=== PATIENT | female | born 1935 | race Caucasian/White ===

== ENCOUNTER 2020-06-19 09:49 | Emergency (ER) | payer MEDICARE, SELFPAY ==
[2020-06-19 10:04] VITALS: BP 143/75; PULSE 92; RESP 18; TEMP 35.8; O2SAT 98
--- NOTE | 2020-06-19 10:10 | ED.GENADULT ---
HPI - General Adult General Chief complaint: Urogenital-Female Stated complaint: disoriented/dizziness/burning w urination Time Seen by Provider: 06/19/20 10:10 Source: family (daughter) and RN notes reviewed Mode of arrival: ambulatory Limitations: other (Alzheimer's) History of Present Illness HPI narrative: 84-year-old female presents with daughter who complains of urinary complaints for the past 2 days. Dysuria consist of increased confusion, burning, and frequency. Daughter says mother wears depend for incontinent episodes and is at baseline at this time. No treatment.? History of UTIs and Alzheimer's disease. Denies fever. No significant pelvic pain. No vaginal discharge.? No concerns for STDs. Exacerbating factors urinating.? Denies hematuria or vaginal bleeding. LMP hysterectomy.? No flank pain. Denies nausea, vomiting, and abdominal pain. Tolerating liquids well.? Remains active. The patient's daughter reports they have not been diagnosed with COVID-19. The patient's daughter reports they are not waiting for the results of a COVID-19 lab test. The patient's daughter reports they do not have chills, weakness, or fatigue. The patient's daughter reports they do not have a new or worsening cough or shortness of breath. Denies chest pain. The patient's daughter reports they do not have any rhinorrhea, congestion, loss of taste, sore throat, and diarrhea. Denies recent traveling. Denies concerns for COVID-19 or exposures been home with limited outdoor exposure except for essential household needs and return home. At this time, patient is not suspected of having COVID-19. Some parts of this dictation were generated by voice recognition software and may contain typographical and/or grammatical inaccuracies. Related Data Home Medications Medication Instructions Recorded Confirmed Namenda 10 mg PO BID 06/19/20 06/19/20 alendronate 70 mg PO WEEKLY 06/19/20 06/19/20 donepezil 10 mg PO HS 06/19/20 06/19/20 levothyroxine 25 mcg PO DAILY 06/19/20 06/19/20 simvastatin 10 mg PO .EVENING 06/19/20 06/19/20 Allergies Allergy/AdvReac Type Severity Reaction Status Date / Time No Known Allergies Allergy Verified 06/19/20 10:34 Review of Systems Review of Systems: Narrative: CONSTITUTIONAL: Denies fever, chills, sweats. EYES: Denies visual changes, redness, discharge. ENT: Denies rhinorrhea, congestion, sore throat, otalgia. CARDIOVASCULAR: Denies chest pain, palpitations, edema. RESPIRATORY: Denies dyspnea, wheezing, cough. GASTROINTESTINAL: Denies abdominal pain, nausea, vomiting, diarrhea. GENITOURINARY: Complains of dysuria (confusion, burning, and frequency). Denies hematuria, abnormal discharge. SKIN: Denies rash or itching. MUSCULOSKELETAL: Denies acute back pain, joint pain, or myalgia. NEUROLOGIC: Denies numbness or focal weakness. PSYCHIATRIC: Denies anxiety or depression. All systems reviewed & are unremarkable except as noted in HPI and below. [facility] Past Medical History Medical History (Updated 06/19/20 @ 17:43 by WINSTON Car) Alzheimers disease Hypertension Hypothyroidism Mild hypercholesterolemia Osteoporosis Urinary tract infection in female Surgical History Surgical History (Updated 06/19/20 @ 17:42 by WINSTON Car) History of hysterectomy Family History Family History (Updated 06/19/20 @ 10:24 by WINSTON Car) Father Unknown family medical history Mother No significant past medical history Social History Social History (Updated 06/19/20 @ 10:26 by WINSTON Car) Smoking status: Former smoker Second hand tobacco smoke exposure: No (former) Alcohol intake: never Substance use: never Living arrangements: with family Additional living arrangements comments: Sharona lives with her spouse and daughter assist when needed, daughter says father is A&OX3 and healthy Occupation/Education: retired Gender identity
--- NOTE | 2020-06-19 11:16 | PC.NURSE ---
1025-Pt unable to void. Provider notified. Provider wants a straight cath done to collect specimen. Provider explained need for straight cath to family.
== END 2020-06-19 10:58 | disposition home or self-care (01) ==
PROVIDERS: Emergency Provider Nurse Practitioner Family; PCP Internal Medicine
DX: R30.0 Dysuria (principal); R31.9 Hematuria, unspecified; Z87.891 Personal history of nicotine dependence; G30.9 Alzheimer's disease, unspecified; F02.80 Dementia in other diseases classified elsewhere, unspecified severity, without behavioral disturbance, psychotic disturbance, mood disturbance, and anxiety; I10 Essential (primary) hypertension; E03.9 Hypothyroidism, unspecified; E78.00 Pure hypercholesterolemia, unspecified; M81.0 Age-related osteoporosis without current pathological fracture
CPT/HCPCS: 81003; 99213; G0463

== ENCOUNTER 2020-12-30 13:07 | Emergency (ER) | payer MEDICARE, SELFPAY ==
[2020-12-30] VITALS (26 sets, daily range): BP systolic 75–166; BP diastolic 38–78; PULSE 58–112; RESP 14–27; TEMP 36.7; O2SAT 92–100
--- NOTE | ~2020-12-30 | XR_ITS ---
EXAMINATION: XR wrist RT min 3V DATE: 12/30/2020 15:19 INDICATION: Right wrist swelling and ecchymoses post fall TECHNIQUE: Posteroanterior, ulnar deviation, oblique, and lateral views of the right wrist were obtai jonnie. COMPARISON: none FINDINGS: Diffuse osteopenia. Bone alignment is normal. No fracture. Mild osteoarthritis at the carpal metacarp al joints. Soft tissues are unremarkable. IMPRESSION: 1. No acute osseous abnormality. Reviewed, dictated and finalized at location A.
--- NOTE | ~2020-12-30 | CT_ITS ---
EXAMINATION: CT brain wo con DATE: 12/30/2020 15:09 INDICATION: Syncope. Head injury. TECHNIQUE: Computed tomography (CT) of the head was performed without intravenous contrast. The mA wa s adjusted according to patient size. Iterative reconstruction technique was employed. The dose-lengt h product was 605.33 mGy-cm. COMPARISON: None FINDINGS: There is diffuse brain volume loss. There are scattered areas of low attenuation in the cer ebral white matter. There is no intracranial hemorrhage, acute infarction, or abnormal intracranial m ass lesion. The ventricles are normal in size. The paranasal sinuses are clear. The mastoid air cells are normal. The orbits are normal. IMPRESSION: 1. Mild nonspecific cerebral white matter disease, which likely represents chronic small vessel ische ellyn disease. Reviewed, dictated and finalized at location B. IMPRESSION: 1. Mild nonspecific cerebral white matter disease, which likely represents extrusion die repair manager maria a small vessel ischemic disease.
--- NOTE | ~2020-12-30 | XR_ITS ---
XR chest 2V 12/30/2020 15:19 Indication: Syncope. Hypertension. Procedure: AP and lateral views of the chest Comparison: No prior studies for comparison. Findings: There is a 1.3 cm nodule lateral to the right hilum. There is calcified granuloma left midl chandra zone. No acute focal pneumonia, pleural effusion or pneumothorax. No acute osseous abnormality. Impression: 1: Right perihilar nodule measuring 1.3 cm, suspicious for malignancy. Recommend follow-up correlatio n with CT chest. Reviewed, dictated and finalized at location A. Impression: 1: Right perihilar nodule measuring 1.3 cm, suspicious for malignancy. Recommen d follow-up correlation with CT chest.
--- NOTE | ~2020-12-30 | CT_ITS ---
EXAMINATION: CT cervical spine wo con DATE: 12/30/2020 15:09 INDICATION: Syncope. Neck pain. TECHNIQUE: Computed tomography (CT) of the cervical spine was performed without intravenous contrast. The dose-length product was 151 mGy-cm. Automated exposure control and iterative reconstruction tech nique were employed. COMPARISON: None FINDINGS: Straightening of cervical lordosis. There is degenerative retrolisthesis at C5-6. There is disc narrowing and endplate sclerosis at C5-6 and C6-7. There is an old spinous process fracture at C 6. No evidence for perched facet. Odontoid process within normal limits. There is multilevel uncinate and facet hypertrophy. Mild levocurvature of the cervical spine. There is an irregular shaped mass o f the right apex, partially visualized, suspicious for bronchogenic carcinoma. No lytic or blastic le sions are identified. No acute fracture or traumatic malalignment. There is carotid atherosclerosis. IMPRESSION: 1. No acute fracture. 2: Partially visualized irregular shaped right apical mass, suspicious for bronchogenic carcinoma. 3: Moderate cervical spondylosis. Reviewed, dictated and finalized at location A. IMPRESSION: 1. No acute fracture. 2: Partially visualized irregular shaped right apical mass, suspicious for bro nchogenic carcinoma. 3: Moderate cervical spondylosis.
--- NOTE | 2020-12-30 13:17 | ECG_ITS ---
Measurements Intervals [place] Rate: 63 P: -15 NM: 199 QRS: -29 QRSD: 145 T: 3 QT: 446 QTc: 458 Interpretive Statements SINUS RHYTHM WITH SINUS ARRHYTHMIA RIGHT BUNDLE BRANCH BLOCK ABNORMAL ECG Electronically Signed On 12-30-2020 13:39:18 CDT by Benoit Keene D.O.
[2020-12-30 14:11] LABS: Basophils Absolute Auto 0.1 K/mm3 (0.0-0.1); Basophils Percent Auto 0.7 % (0.2-1.2); Eosinophils Percent Auto 0.6 % (0-4.4); Hematocrit 40.1 % (37.0-47.0); Hemoglobin 12.7 g/dL (12.0-15.0); Immature Granulocyte Absolute 0.04 K/mm3 (0.00-0.031); Immature Granulocyte Percent A 0.6 % (0-0.5); Lymphocytes Absolute Auto 0.91 K/mm3 (0.9-3.2); Mean Corpuscular HGB Conc 31.7 g/dl (32-36); Mean Corpuscular Volume 94.8 fl (80-100); Mean Platelet Volume 11.5 fl (7.4-10.4); Monocytes Absolute Auto 0.4 K/mm3 (0.1-0.6); Monocytes Percent Auto 6.1 % (2.6-8.5); Neutrophils Absolute Auto 5.5 K/mm3 (1.3-6.7); Platelet Count Result 157 k/mm3 (150-375); Red Blood Count 4.23 M/mm3 (4.2-5.4); Red Cell Distribution Width 14.4 % (11.5-14.5)
[2020-12-30 14:21] LABS: Anion Gap 6 mmol/L (8-16); Blood Urea Nitrogen 25 mg/dL (7-17); Calcium 9.4 mg/dL (8.4-10.2); Carbon Dioxide 29 mmol/L (22-30); Chloride 107 mmol/L (98-107); Estimated CRCL calculation 36 ml/min; Estimated Glomerular Filt Rate 60; Glucose 94 mg/dL (65-105); Potassium 4.3 mmol/L (3.4-5.0); Sodium 142 mmol/L (137-145)
[2020-12-30 14:33] LABS: Add Urine Microscopic? YES; Appearance Urine Cloudy (Clear); Bacteria Urine Trace /hpf; Bilirubin Urine Negative (Negative); Blood Urine Negative (Negative); Color Urine Amber (Yellow); Glucose Urine UA Negative (Negative); Hyaline Casts Urine 15-19 /lpf; Ketones Urine 1+ mg/dL (Negative); Leukocyte Esterase Ur Negative LEU/UL (Negative); Mucus Urine Few /lpf; Nitrate Urine Negative (Negative); Protein Urine 1+ mg/dL (Negative); Specific Grav Ur 1.018 (1.001-1.035); Squamous Epithelial Cell Urine Rare /hpf (Few)
--- NOTE | 2020-12-30 14:38 | PC.NURSE ---
called labSal, added on PT INR, PTT, and a Trop I Baseline [id number]
--- NOTE | 2020-12-30 15:02 | ED.SYNCOPE ---
HPI - Syncope General Chief Complaint: Syncope Stated Complaint: SYNCOPAL EPISODE Time Seen by Provider: 12/30/20 14:32 Source: patient and family Mode of arrival: EMS Limitations: dementia History of Present Illness HPI narrative: This is an 85-year-old female that presents to the emergency department from [facility] [place] and rehab for a syncopal episode today. Daughter is with patient who gives history. Reports she had just finished therapy and was seated in her wheelchair. Reports she was not complaining of any symptoms. Had syncopal event. Fell forward out of the wheelchair. Did hit her head. Reports she came back to her normal level of consciousness very quickly. Patient currently denies any complaints. Per daughter patient has had several episodes of syncope over the last couple years. Does know that the patient wore phys asst in the past. Also reports she was admitted to the hospital area earlier this year for syncopal events with further work-up with no etiology found. Patient denies fever, chest pain, shortness of breath, vomiting, numbness, or weakness. Related Data Home Medications Medication Instructions Recorded Confirmed Namenda 10 mg PO BID 06/19/20 06/19/20 alendronate 70 mg PO WEEKLY 06/19/20 06/19/20 donepezil 10 mg PO HS 06/19/20 06/19/20 levothyroxine 25 mcg PO DAILY 06/19/20 06/19/20 simvastatin 10 mg PO .EVENING 06/19/20 06/19/20 Allergies Allergy/AdvReac Type Severity Reaction Status Date / Time No Known Allergies Allergy Verified 12/30/20 14:00 Review of Systems Review of Systems: Narrative: CONSTITUTIONAL: Denies fever EYES: Denies visual changes CARDIOVASCULAR: Denies chest pain RESPIRATORY: Denies dyspnea. GASTROINTESTINAL: Denies vomiting GENITOURINARY: Denies dysuria MUSCULOSKELETAL: Denies back pain, joint pain, or myalgia. NEUROLOGIC: Denies headache, numbness, or weakness. All systems reviewed & are unremarkable except as noted in HPI and below PMFSH Past Medical History Medical History (Updated 12/30/20 @ 17:51 by Remedios Shaffer PA-C) Alzheimers disease Hypertension Hypothyroidism Mild hypercholesterolemia Osteoporosis Urinary tract infection in female Surgical History Surgical History (Updated 06/19/20 @ 17:42 by WINSTON Car) History of hysterectomy Family History Family History (Updated 06/19/20 @ 10:24 by WINSTON Car) Father Unknown family medical history Mother No significant past medical history Social History Social History (Updated 06/19/20 @ 10:26 by WINSTON Car) Smoking status: Former smoker Second hand tobacco smoke exposure: No (former) Alcohol intake: never Substance use: never Additional living arrangements comments: Sharona lives with her spouse and daughter assist when needed, daughter says father is A&OX3 and healthy Gender identity (if verbalized by the patient): Female Exam Narrative: Exam Narrative: GENERAL: Elderly, well-nourished, and in no acute distress. HEAD: Normocephalic, atraumatic. EYES: PERRLA and EOMI. ENT: Nares clear, no rhinorrhea or epistaxis. Mucous membranes moist. Oropharynx without tonsillar hypertrophy exudate or other lesions. Bilateral TMs pearly ryder non-bulging NECK: Supple. No adenopathy or masses. Tender to palpation of midline cervical spine CHEST: Clear to auscultation. No respiratory distress. No wheezes rales or rhonchi HEART: Regular rate and rhythm. No murmur heard. Normal peripheral pulses. ABDOMEN: Soft, nontender, nondistended, normal active bowel sounds. BACK: No midline thoracic or lumbar spine tenderness EXTREMITIES: Normal range of motion. No edema or obvious deformity. SKIN: Warm, dry, no rash. NEURO: No focal deficits. Alert and oriented x1, which is patient's normal mentation. PSYCH: Normal mood and affect Course Vital Signs Vital signs: Vital Signs Temperature 98.0 F 12/30/20 13:11 Pulse Rate 67
[2020-12-30 15:06] LABS: Troponin I < 0.012 ng/mL (0.000-0.034)
[2020-12-30 15:14] LABS: INR 0.9; Prothrombin Time 12.9 Seconds (11.1-14.7)
[2020-12-30 15:15] LABS: Partial Thromboplastin Time 26.3 SECONDS (22.3-36.8)
== END 2020-12-30 18:13 ==
PROVIDERS: Emergency Medicine; Physician Assistant; Emergency Provider Emergency Medicine; PCP Nurse Practitioner Family
DX: R55 Syncope and collapse (principal); G30.9 Alzheimer's disease, unspecified; F02.80 Dementia in other diseases classified elsewhere, unspecified severity, without behavioral disturbance, psychotic disturbance, mood disturbance, and anxiety; I10 Essential (primary) hypertension; E03.9 Hypothyroidism, unspecified; E78.00 Pure hypercholesterolemia, unspecified; M81.0 Age-related osteoporosis without current pathological fracture; Z87.440 Personal history of urinary (tract) infections; M47.812 Spondylosis without myelopathy or radiculopathy, cervical region; R90.82 White matter disease, unspecified; R91.1 Solitary pulmonary nodule; I45.10 Unspecified right bundle-branch block
CPT/HCPCS: 36415; 51701; 70450; 71046; 72125; 73110; 80048; 81001; 84484; 85025; 85610; 85730; 93005; 99284

== ENCOUNTER 2021-09-03 09:15 | Emergency (ER) | payer MEDICARE, SELFPAY ==
--- NOTE | ~2021-09-03 | CT_ITS ---
EXAMINATION: CT brain wo con DATE: 09/03/2021 10:04 INDICATION: Head injury. TECHNIQUE: Computed tomography (CT) of the head was performed without intravenous contrast. The mA wa s adjusted according to patient size. Iterative reconstruction technique was employed. The dose-lengt h product was 605.33 mGy-cm. COMPARISON: Head CT 12/30/2020 FINDINGS: There is diffuse brain volume loss. There are scattered areas of low attenuation in the cer ebral white matter. There is no intracranial hemorrhage, acute infarction, or abnormal intracranial m ass lesion. The ventricles are normal in size. There is mild mucosal thickening in the paranasal sinu ses. The mastoid air cells are normal. There are likely changes of ocular lens replacement surgeries. There is right posterior superior scalp soft tissue swelling. IMPRESSION: 1. Stable moderate nonspecific cerebral white matter disease, which likely represents chronic small v essel ischemic disease. Reviewed, dictated and finalized at location A. TLING COACH IMPRESSION: 1. Stable moderate nonspecific cerebral white matter disease, which likely repr esents chronic small vessel ischemic disease.
--- NOTE | ~2021-09-03 | XR_ITS ---
EXAMINATION: XR chest 1V portable DATE: 09/03/2021 10:17 INDICATION: Rib pain. Fall. TECHNIQUE: A single frontal view of the chest was obtained. COMPARISON: Chest 2 views 12/30/2020 FINDINGS: Calcified left lung nodules and calcified left hilar lymph nodes are consistent with old gr anulomatous disease. There is a 1.5 cm nodule in right midlung zone. There is mild scarring at the victoria ng apices. No pleural effusion or pneumothorax. The heart size is normal. IMPRESSION: 1. 1.5 cm nodule in right midlung zone similar in size to the prior exam, suspicious for primary bron chogenic carcinoma. Noncontrast chest CT is recommended. Reviewed, dictated and finalized at location A. BOX OPERATOR IMPRESSION: 1. 1.5 cm nodule in right midlung zone similar in size to the prior exam, suspi cious for primary bronchogenic carcinoma. Noncontrast chest CT is recommended.
--- NOTE | ~2021-09-03 | XR_ITS ---
EXAMINATION: XR hip BI 2V w AP pelvis DATE: 09/03/2021 10:17 INDICATION: Hip pain. TECHNIQUE: An anteroposterior view pelvis and 2 views of each hip were obtained. COMPARISON: None. FINDINGS: There is lumbar levocurvature and mild spondylosis. No fracture. There is mild osteoarthrit is of the hips. IMPRESSION: 1. Mild osteoarthritis of the hips. Reviewed, dictated and finalized at location A. [employer]ISOR BE[employer] DEPARTMENT
--- NOTE | ~2021-09-03 | CT_ITS ---
EXAMINATION: CT cervical spine wo con DATE: 09/03/2021 10:04 INDICATION: Head injury. TECHNIQUE: Computed tomography (CT) of the cervical spine was performed without intravenous contrast. Automated exposure control and iterative reconstruction technique were employed. The dose-length pro duct was 148.76 mGy-cm. COMPARISON: CT cervical spine 12/30/2020 FINDINGS: There are chronic airspace opacities in right lung upper lobe, likely scarring. There is 4 degrees dextrocurvature of cervicothoracic spine. There is 2 mm retrolisthesis of C4 on C5 and C5 on C6. Vertebral body heights are normal. There is mildly decreased disc height at C4-C5 and severely de creased disc height at C5-C6 and C6-C7. The following disc levels are specifically discussed: C2-C3: There is mild right uncovertebral joint osteoarthritis. There is mild bilateral facet joint os teoarthritis. There is no neural foraminal stenosis. There is no central canal stenosis. C3-C4: There is mild left uncovertebral joint osteoarthritis. There is mild right and moderate left f acet joint osteoarthritis. There is no neural foraminal stenosis. There is no central canal stenosis. C4-C5: There is mild bilateral uncovertebral joint osteoarthritis. There is moderate bilateral facet joint osteoarthritis. There is no neural foraminal stenosis. There is mild central canal stenosis. C5-C6: There is severe bilateral uncovertebral joint osteoarthritis. There is mild bilateral facet radha int osteoarthritis. There is mild bilateral neural foraminal stenosis. There is mild central canal st enosis. C6-C7: There is severe bilateral uncovertebral joint osteoarthritis. There is mild right and moderate left facet joint osteoarthritis. There is mild bilateral neural foraminal stenosis. There is mild ce ntral canal stenosis. C7-T1: There is no uncovertebral joint osteoarthritis. There is mild right and moderate left facet radha int osteoarthritis. There is no neural foraminal stenosis. There is no central canal stenosis. IMPRESSION: 1. No fracture. 2. Severe cervical spondylosis. Reviewed, dictated and finalized at location A. ALTY UNDERWRITER
--- NOTE | ~2021-09-03 | CT_ITS ---
EXAMINATION: CT lumbar spine wo con DATE: 09/03/2021 12:37 INDICATION: Back pain. Fall. TECHNIQUE: Computed tomography (CT) of the lumbar spine was performed without intravenous contrast. A utomated exposure control and iterative reconstruction technique were employed. The dose-length produ ct was 637.28 mGy-cm. COMPARISON: None FINDINGS: There are masses in the adrenal glands bilaterally measuring up to 18 mm in the left measur ing low-attenuation, consistent with adenomas. There is 3 mm anterolisthesis of L2 on L3 and L3 on L4 . There is 5 degrees levocurvature of lumbar spine. There is mildly decreased disc height at L1-L2 an d L4-L5. The following disc levels are specifically discussed: L1-L2: The disc is bulging. There is severe right and moderate left facet joint osteoarthritis. There is mild bilateral neural foraminal stenosis. There is mild central canal stenosis. L2-L3: The disc is bulging. There is severe bilateral facet joint osteoarthritis. There is mild right and moderate left neural foraminal stenosis. There is mild central canal stenosis. L3-L4: The disc is bulging. There is severe bilateral facet joint osteoarthritis. There is mild bilat eral neural foraminal stenosis. There is mild central canal stenosis. L4-L5: The disc is bulging. There is severe right and moderate left facet joint osteoarthritis. There is moderate right and mild left neural foraminal stenosis. There is mild central canal stenosis. L5-S1: The disc is bulging. There is severe bilateral facet joint osteoarthritis. There is mild right neural foraminal stenosis. There is mild central canal stenosis. IMPRESSION: 1. No fracture. 2. Moderate lumbar spondylosis. Reviewed, dictated and finalized at location A. ECT CONSULTANT
[2021-09-03 09:27] VITALS: BP 160/81; PULSE 84; RESP 16; TEMP 36.6; O2SAT 97
--- NOTE | 2021-09-03 10:11 | ED.FALL ---
HPI - Fall General Chief Complaint: Fall Stated Complaint: fALL Time Seen by Provider: 09/03/21 09:31 Source: patient, family and RN notes reviewed Mode of arrival: EMS Limitations: dementia History of Present Illness HPI Narrative: This is an 86 year old female who presents for evaluation after a fall. Her daughter is at bedside to assist with history due to patient with dementia. Patient is oriented to person and place but she is not aware of fall. Patient's daughter states patient had witnessed fall. Patient's was standing patient up to transfer to wheelchair but she lost her balance. He thinks she hit her head on carpet but no LOC. It is reported that patient was complaining of bilateral hip pain. Patient denies neck pain, arm pain, hip pain or knee pain. She is not on chronic anticoagulation. Related Data Home Medications Medication Instructions Recorded Confirmed Namenda 10 mg PO BID 06/19/20 06/19/20 alendronate 70 mg PO WEEKLY 06/19/20 06/19/20 donepezil 10 mg PO HS 06/19/20 06/19/20 levothyroxine 25 mcg PO DAILY 06/19/20 06/19/20 simvastatin 10 mg PO .EVENING 06/19/20 06/19/20 Allergies Allergy/AdvReac Type Severity Reaction Status Date / Time No Known Allergies Allergy Verified 12/30/20 14:00 Review of Systems Review of Systems: ROS unobtainable: Yes unobtainable due to medical condition (dementia) [facility] Past Medical History Medical History (Updated 09/03/21 @ 13:36 by Laura Hess MD) Alzheimers disease Hypertension Hypothyroidism Mild hypercholesterolemia Osteoporosis Urinary tract infection in female Surgical History Surgical History (Updated 06/19/20 @ 17:42 by WINSTON Car) History of hysterectomy Family History Family History (Updated 06/19/20 @ 10:24 by WINSTON Car) Father Unknown family medical history Mother No significant past medical history Social History Social History (Updated 06/19/20 @ 10:26 by WINSTON Car) Smoking status: Former smoker Second hand tobacco smoke exposure: No (former) Alcohol intake: never Substance use: never Additional living arrangements comments: Sharona lives with her spouse and daughter assist when needed, daughter says father is A&OX3 and healthy Gender identity (if verbalized by the patient): Female Sexual Orientation (if Verbalized by the Patient): Straight or Heterosexual Exam Const: General: no acute distress and alert Other: oriented to person and place HENMT: Head: normocephalic and atraumatic Face and sinus: normal facial exam, sinuses nontender and face symmetric Mouth: Yes Normal oral and palatal mucosa present, Yes lip normal, Yes oropharynx normal and Yes moist mucous membranes Eyes: EOM: EOMs intact bilaterally Chest: Chest palpation & inspection: normal inspection of the chest Resp: Effort & Inspection: normal respiratory effort and retractions Auscultation: clear to auscultation bilaterally Cardio: Rate: regular rate Rhythm: regular rhythm Heart sounds: no murmurs GI: GI Palp: Yes Soft to palpation, No Tenderness to palpation present (GI) and No Guarding due to palpation present (GI) Auscultation: normal bowel sounds Neuro: General: moves all extremities, no meningeal signs and CN's II-XI intact bilaterally Extrem: General: normal to inspection Psych: Mental Status: mental status grossly normal Affect: normal affect Course Reevaluation(s) Reevaluation #1: I Discussed with patient and daughter that no fractures found. staff got patient up. There does not appear to be issue with bearing weight on hip. She was complaining about low back pain. She was given tylenol. Family is working on increasing level of care. no other concerns. Family is aware of lung nodule and recommendation. Date: 09/03/21 Time: 13:30 Vital Signs Vital signs: Vital Signs Temperature 97.9 F 09/03/21 09:27 Pulse Rate 84
[2021-09-03 14:58] VITALS: BP 140/82; PULSE 87; RESP 16; O2SAT 97
== END 2021-09-03 15:00 ==
PROVIDERS: Emergency Provider General Practice; PCP Nurse Practitioner Family
DX: S39.92XA Unspecified injury of lower back, initial encounter (principal); R91.1 Solitary pulmonary nodule; G30.9 Alzheimer's disease, unspecified; F02.80 Dementia in other diseases classified elsewhere, unspecified severity, without behavioral disturbance, psychotic disturbance, mood disturbance, and anxiety; I10 Essential (primary) hypertension; E03.9 Hypothyroidism, unspecified; E78.00 Pure hypercholesterolemia, unspecified; M81.0 Age-related osteoporosis without current pathological fracture; Z87.440 Personal history of urinary (tract) infections; W18.39XA Other fall on same level, initial encounter; Z87.891 Personal history of nicotine dependence; R90.82 White matter disease, unspecified; M16.0 Bilateral primary osteoarthritis of hip; M47.812 Spondylosis without myelopathy or radiculopathy, cervical region; M47.816 Spondylosis without myelopathy or radiculopathy, lumbar region
CPT/HCPCS: 70450; 71045; 72125; 72131; 73521; 96365; 99284; J0131

== ENCOUNTER 2021-12-05 07:33 | Emergency (ER) | payer MEDICARE, SELFPAY ==
--- NOTE | ~2021-12-05 | CT_ITS ---
EXAMINATION: CT brain wo con DATE: 12/05/2021 08:26 INDICATION: Unwitnessed fall. TECHNIQUE: Computed tomography (CT) of the head was performed without intravenous contrast. The mA wa s adjusted according to patient size. Iterative reconstruction technique was employed. The dose-lengt h product was 908.00 mGy-cm. COMPARISON: Head CT 09/03/2021 FINDINGS: There are scattered areas of low attenuation in the cerebral white matter. There is no intr acranial hemorrhage, acute infarction, or abnormal intracranial mass lesion. The ventricles are kathleen l in size. There is mild mucosal thickening in the paranasal sinuses. There are likely changes of ocu lar lens replacement surgeries. The mastoid air cells are normal. There is left posterior scalp soft tissue swelling. IMPRESSION: 1. Stable moderate nonspecific cerebral white matter disease, which likely represents chronic small v essel ischemic disease. Reviewed, dictated and finalized at location B. IMPRESSION: 1. Stable moderate nonspecific cerebral white matter disease, which likely repr esents chronic small vessel ischemic disease.
[2021-12-05 07:36] VITALS: BP 183/72; PULSE 72; RESP 18; TEMP 36.2; O2SAT 95
[2021-12-05 07:40] VITALS: BP 181/72; O2SAT 97
[2021-12-05 07:46] VITALS: BP 183/71; O2SAT 92
[2021-12-05 08:01] VITALS: BP 165/74
--- NOTE | 2021-12-05 08:09 | ED.FALL ---
HPI - Fall General Chief Complaint: Fall Stated Complaint: FALL Source: patient, EMS and RN notes reviewed Mode of arrival: ambulatory Limitations: dementia History of Present Illness HPI Narrative: 86-year-old female with history of dementia, normally only alert to self, presents to the emergency department after having an unwitnessed fall at the skilled nursing. custodial staff found her supine after the fall. Patient was treated for evaluation after a suspected head injury. custodial did report a posterior hematoma. Upon arrival to the emergency department patient is alert and denies any complaints. Related Data Home Medications Medication Instructions Recorded Confirmed Namenda 10 mg PO BID 06/19/20 06/19/20 alendronate 70 mg PO WEEKLY 06/19/20 06/19/20 donepezil 10 mg PO HS 06/19/20 06/19/20 levothyroxine 25 mcg PO DAILY 06/19/20 06/19/20 simvastatin 10 mg PO .EVENING 06/19/20 06/19/20 Allergies Allergy/AdvReac Type Severity Reaction Status Date / Time No Known Allergies Allergy Verified 12/30/20 14:00 Review of Systems Review of Systems: CONSTITUTIONAL: Denies fever, chills, or sweats. EYES: Denies visual changes, redness, or discharge. ENT: Denies rhinorrhea, congestion, sore throat, or otalgia. CARDIOVASCULAR: Denies chest pain, palpitations, or edema. RESPIRATORY: Denies cough or dyspnea. GASTROINTESTINAL: Denies abdominal pain, nausea, vomiting, or diarrhea. GENITOURINARY: Denies dysuria or hematuria. SKIN: Denies rash or itching. MUSCULOSKELETAL: Denies back pain, joint pain, or myalgia. NEUROLOGIC: At her baseline All systems reviewed & are unremarkable except as noted in HPI and below PMFSH Past Medical History Medical History (Updated 12/05/21 @ 09:33 by Aidan Golden MD) Alzheimers disease Hypertension Hypothyroidism Mild hypercholesterolemia Osteoporosis Urinary tract infection in female Surgical History Surgical History (Updated 06/19/20 @ 17:42 by WINSTON Car) History of hysterectomy Family History Family History (Updated 06/19/20 @ 10:24 by WINSTON Car) Father Unknown family medical history Mother No significant past medical history Social History Social History (Updated 06/19/20 @ 10:26 by ION Car Smoking status: Former smoker Second hand tobacco smoke exposure: No (former) Alcohol intake: never Substance use: never Additional living arrangements comments: Sharona lives with her spouse and daughter assist when needed, daughter says father is A&OX3 and healthy Gender identity (if verbalized by the patient): Female Sexual Orientation (if Verbalized by the Patient): Straight or Heterosexual Exam Narrative: APPEARANCE: Well appearing, no pain, no distress, well-nourished. HEAD: normocephalic, atraumatic. EYES: PERRLA/EOMI, conjunctivae clear. NOSE: Normal no drainage EARS:TMS clear with good light reflex. THROAT: Pharynx clear, no exudate. NECK: Supple. No adenopathy, no masses. RESPIRATORY: Airway patent, respirations nonlabored. Clear to auscultation bilaterally, no rales, rhonchi, wheezing. CARDIOVASCULAR: Regular rate and rhythm without murmurs rubs or gallops. ABDOMINAL: Soft, nontender, nondistended, normal bowel sounds MUSCULOSKELETAL: Moves all extremities. Strength/ROM intact, No edema, No calf tenderness. Palpated all limbs and joints, no evidence of injury and no tenderness to palpation. Normal range of motion NEURO: Alert. Cranial nerves II through XII intact. Grossly intact SKIN: Warm, dry. Normal Color Course Course Emergency Course: Family was updated on the results of the CT scan. Patient was able to stand at the bedside and this is typically the extent of her normal ambulation. Vital Signs Vital signs: Vital Signs Temperature 97.2 F L 12/05/21 07:36 Pulse Rate 72 12/05/21 07:36 Respiratory Rate 18 12/05/21 07:36 Blood Pressure 183/72 H 12/05/21 07:36
== END 2021-12-05 10:17 | disposition home or self-care (01) ==
PROVIDERS: Emergency Provider Emergency Medicine
DX: S09.90XA Unspecified injury of head, initial encounter (principal); G30.9 Alzheimer's disease, unspecified; F02.80 Dementia in other diseases classified elsewhere, unspecified severity, without behavioral disturbance, psychotic disturbance, mood disturbance, and anxiety; I10 Essential (primary) hypertension; E03.9 Hypothyroidism, unspecified; E78.00 Pure hypercholesterolemia, unspecified; M81.0 Age-related osteoporosis without current pathological fracture; R90.82 White matter disease, unspecified; W19.XXXA Unspecified fall, initial encounter
CPT/HCPCS: 70450; 99284

== ENCOUNTER 2022-04-10 20:24 | Emergency (ER) | payer MEDICARE, SELFPAY ==
--- NOTE | ~2022-04-10 | XR_ITS ---
EXAMINATION: XR chest 1V portable Exam Date/Time: 04/10/2022 21:14 CDT HISTORY: syncope today hx htn, fomer smoker Comparison: 09/03/2021 and 12/30/2020. RESULT: Lines, tubes, and devices: None. Lungs and pleura: No acute finding. 1.6 cm right midlung pulmonary nodule. Cardiomediastinal silhouette: Stable. Other: No acute osseous or upper abdominal finding. IMPRESSION: No acute cardiopulmonary process. 1.6 cm right midlung pulmonary nodule, prior recommendation for non emergent, outpatient CT of the chest is unchanged. Reviewed, dictated and finalized at location K. IMPRESSION: No acute cardiopulmonary process. 1.6 cm right midlung pulmonary nodule, prior recommendation for nonemergent, outpatient CT of the chest is unchanged.
[2022-04-10 20:20] VITALS: BP 185/85; PULSE 69; RESP 14; TEMP 36.4; O2SAT 100
--- NOTE | 2022-04-10 20:21 | ECG_ITS ---
Measurements Intervals [place] Rate: 74 P: -44 TN: 132 QRS: -52 QRSD: 138 T: 10 QT: 431 QTc: 481 Interpretive Statements SINUS RHYTHM RIGHT BUNDLE BRANCH BLOCK LEFT ANTERIOR FASCICULAR BLOCK BASELINE ARTIFACT- I, II, III, AVR, AVL, AVF, V2-V3 ABNORMAL ECG COMPARED TO ECG 12/30/2020 13:17:46 LEFT ANTERIOR FASCICULAR BLOCK NOW PRESENT Electronically Signed On 04-11-2022 6:25:02 CDT by Benoit Keene D.O.
--- NOTE | 2022-04-10 21:07 | ED.GENADULT ---
HPI - General Adult General Chief complaint: Syncope Stated complaint: Unspecified History of Present Illness HPI narrative: Patient is a 86-year-old female who presents ER with syncope. Patient was in her shower being cared for by staff when she lost consciousness. Patient has dementia and lives in memory care. Apparently patient required sternal rub to wake back up. No reports of trauma. Family concerns for UTI. Reports she had visited her earlier in the day and patient seem to be having a good day. Related Data Home Medications Medication Instructions Recorded Confirmed Namenda 10 mg PO BID 06/19/20 06/19/20 alendronate 70 mg tablet 70 mg PO WEEKLY 06/19/20 06/19/20 donepezil 10 mg tablet 10 mg PO HS 06/19/20 06/19/20 levothyroxine 25 mcg tablet 25 mcg PO DAILY 06/19/20 06/19/20 simvastatin 10 mg tablet 10 mg PO .EVENING 06/19/20 06/19/20 Allergies Allergy/AdvReac Type Severity Reaction Status Date / Time No Known Allergies Allergy Verified 04/10/22 20:45 Review of Systems Review of Systems: ROS unobtainable: Yes unobtainable due to mental status PMFSH Past Medical History Medical History (Updated 04/10/22 @ 22:52 by Kamran Ray MD) Alzheimers disease Hypertension Hypothyroidism Mild hypercholesterolemia Osteoporosis Urinary tract infection in female Surgical History Surgical History (Updated 06/19/20 @ 17:42 by WINSTON Car) History of hysterectomy Family History Family History (Updated 06/19/20 @ 10:24 by WINSTON Car) Father Unknown family medical history Mother No significant past medical history Social History Social History (Updated 06/19/20 @ 10:26 by WINSTON Car) Smoking status: Former smoker Second hand tobacco smoke exposure: No (former) Alcohol intake: never Substance use: never Additional living arrangements comments: Sharona lives with her spouse and daughter assist when needed, daughter says father is A&OX3 and healthy Gender identity (if verbalized by the patient): Female Sexual Orientation (if Verbalized by the Patient): Straight or Heterosexual Exam Narrative: GENERAL: Well-appearing, well-nourished, and in no acute distress. HEAD: Normocephalic, atraumatic. EYES: PERRL and EOMI. ENT: Mucous membranes moist. CHEST: Clear to auscultation. No respiratory distress. HEART: Regular rate and rhythm. Normal peripheral pulses. ABDOMEN: Soft, nontender, nondistended. EXTREMITIES: No deformity of upper or lower EXTR. Patient's extremities are stiff and patient introduces range of motion testing. SKIN: Warm, dry, no rash. NEURO: Patient awake and alert but not verbal towards me. Course Course Emergency Course: Patient discussed results. Patient with no glaring lab abnormalities. Resting comfortably in room. No arrhythmia on monitor. Discussed with family and they feel comfortable discharge back to assisted. Discussed hospital [facility] hosp[facility] for end-stage dementia as family is reporting that patient is losing weight with poor eating and is no longer ambulatory. They report that they have discussed that previously but had not made this decision yet. They are also aware of the lung nodule. Family considers patient neurologic baseline. Vital Signs Vital signs: Vital Signs Temperature 97.5 F L 04/10/22 20:20 Pulse Rate 69 04/10/22 20:20 Respiratory Rate 14 04/10/22 20:20 Blood Pressure 185/85 H 04/10/22 20:20 Pulse Oximetry 100 04/10/22 20:20 Oxygen Delivery Room Air 04/10/22 20:20 Temperature 97.5 F L 04/10/22 20:20 Pulse Rate 67 04/10/22 22:05 Respiratory Rate 15 04/10/22 22:05 Blood Pressure 153/68 H 04/10/22 22:05 Pulse Oximetry 98 04/10/22 22:05 Oxygen Delivery Room Air 04/10/22 20:20 Medical Decision Making Vital Signs Vital Signs: Vital Signs Temperature 97.5 F L 04/10/22 20:20 Pulse Rate 69 04/10/22 20:20 Respiratory Rate 14
[2022-04-10 21:08] LABS: Basophils Absolute Auto 0.1 K/mm3 (0.0-0.1); Basophils Percent Auto 1.1 % (0.2-1.2); Eosinophils Percent Auto 0.6 % (0-4.4); Hemoglobin 12.1 g/dL (12.0-15.0); Immature Granulocyte Absolute 0.03 K/mm3 (0.00-0.031); Immature Granulocyte Percent A 0.5 % (0-0.5); Lymphocytes Absolute Auto 1.65 K/mm3 (0.9-3.2); Lymphocytes Percent Auto 26.3 % (18.3-44.2); Mean Corpuscular Hemoglobin 29.8 pg (26-34); Mean Corpuscular Volume 96.1 fl (80-100); Mean Platelet Volume 11.2 fl (7.4-10.4); Monocytes Absolute Auto 0.5 K/mm3 (0.1-0.6); Monocytes Percent Auto 8.5 % (2.6-8.5); Platelet Count Result 155 k/mm3 (150-375); Red Blood Count 4.06 M/mm3 (4.2-5.4); Red Cell Distribution Width 15.6 % (11.5-14.5); White Blood Count 6.3 K/mm3 (4.5-10.0)
[2022-04-10 21:09] LABS: Appearance Urine Clear (Clear); Bilirubin Urine Negative (Negative); Blood Urine Negative (Negative); Color Urine Yellow (Yellow); Glucose Urine UA Negative (Negative); Ketones Urine Negative (Negative); Leukocyte Esterase Ur Negative LEU/UL (Negative); Nitrate Urine Negative (Negative); Protein Urine Negative (Negative); Specific Grav Ur 1.015 (1.001-1.035); Urobilinogen Urine 0.2 mg/dL (<2.0); pH Urine 7.5 (5.0-9.0)
[2022-04-10 21:11] LABS: Add Urine Microscopic? NO
[2022-04-10 21:20] LABS: Alanine Aminotransferase 14 U/L (6-35); Albumin Level 3.5 g/dL (3.5-5.1); Alkaline Phosphatase 56 U/L (38-126); Anion Gap 11 mmol/L (8-16); Aspartate Amino Transferase 33 U/L (14-36); Bilirubin,Total 0.3 mg/dL (0.2-1.3); Blood Urea Nitrogen 17 mg/dL (7-17); Calcium 8.5 mg/dL (8.4-10.2); Carbon Dioxide 30 mmol/L (22-30); Chloride 95 mmol/L (98-107); Estimated Glomerular Filt Rate > 60; Glucose 98 mg/dL (65-110); Potassium 4.5 mmol/L (3.4-5.0); Sodium 136 mmol/L (137-145)
[2022-04-10 22:05] VITALS: BP 153/68; PULSE 67; RESP 15; O2SAT 98
[2022-04-10 23:24] VITALS: BP 151/106; PULSE 75; RESP 18; O2SAT 100
[2022-04-11 00:41] VITALS: BP 188/83; PULSE 66; RESP 14; O2SAT 99
== END 2022-04-11 00:41 ==
PROVIDERS: Emergency Provider Emergency Medicine
DX: R55 Syncope and collapse (principal); G30.9 Alzheimer's disease, unspecified; F02.80 Dementia in other diseases classified elsewhere, unspecified severity, without behavioral disturbance, psychotic disturbance, mood disturbance, and anxiety; I10 Essential (primary) hypertension; E03.9 Hypothyroidism, unspecified; E78.00 Pure hypercholesterolemia, unspecified; M81.0 Age-related osteoporosis without current pathological fracture; Z90.710 Acquired absence of both cervix and uterus; Z87.891 Personal history of nicotine dependence; R91.1 Solitary pulmonary nodule; I45.2 Bifascicular block
CPT/HCPCS: 36415; 71045; 80053; 81003; 85025; 93005; 99284

== ENCOUNTER 2022-04-28 21:10 | Emergency (ER) | payer MEDICARE, SELFPAY ==
--- NOTE | ~2022-04-28 | XR_ITS ---
XR chest 1V portable 04/28/2022 22:04 Indication: Hypertension. Status post fall. Procedure: AP view of the chest Comparison: Comparison to multiple prior studies sequentially, with oldest reviewed study dated 12/30 Findings: there are bilateral upper lobe nodules as well as a nodule in the right midlung. The upper lobe nodules appear new compared with 12/30/2020 in the right midlung nodule measuring appears slightl y larger measuring 1.5 cm compared with 1.2 cm on prior study.. Cardiomegaly. The lungs are hyperinfl ated which is consistent with, but not diagnostic of chronic obstructive pulmonary disease. No acute osseous abnormality. Impression: 1: Bilateral pulmonary nodules. Consider metastatic disease and primary bronchogenic carcinoma. Reviewed, dictated and finalized at location A. Impression: 1: Bilateral pulmonary nodules. Consider metastatic disease and primary broncho genic carcinoma.
--- NOTE | ~2022-04-28 | CT_ITS ---
EXAMINATION: CT cervical spine wo con DATE: 04/28/2022 21:55 INDICATION: Unwitnessed fall TECHNIQUE: Computed tomography (CT) of the cervical spine was performed without intravenous contrast. The dose-length product was 157 mGy-cm. Automated exposure control and iterative reconstruction tech nique were employed. COMPARISON: None FINDINGS: Straightening of normal cervical lordosis. There is moderate degenerative disc disease at C 5-6 and C6-7. There is degenerative anterolisthesis at C4-5 and retrolisthesis at C5-6. Odontoid proc ess is unremarkable. No evidence for perched facet. Craniovertebral junction is unremarkable. There i s moderate multilevel uncinate hypertrophy. There is an irregular shaped mass in the right upper lobe which is incompletely visualized. There is a cavitary nodule in the left upper lobe measuring 12 mm. There is emphysema. No significant paraspinal soft tissue abnormality. There is carotid atherosclero sis. IMPRESSION: 1. No acute abnormality of the cervical spine. 2: Irregular shaped nodule in the right upper lobe with linear configuration. An additional cavitary nodule present in the left upper lobe measuring 12 mm maximum dimension. Consider infectious/inflamma tory etiologies as well as bronchogenic carcinoma and metastatic disease. Correlate for history of ma lignancy. Reviewed, dictated and finalized at location A. IMPRESSION: 1. No acute abnormality of the cervical spine. 2: Irregular shaped nodule in the right upper lobe with linear configuration. A n additional cavitary nodule present in the left upper lobe measuring 12 mm max imum dimension. Consider infectious/inflammatory etiologies as well as bronchog enic carcinoma and metastatic disease. Correlate for history of malignancy.
--- NOTE | ~2022-04-28 | CT_ITS ---
EXAMINATION: CT brain wo con DATE: 04/28/2022 21:55 INDICATION: And witnessed fall. Possible syncope. Hypertension. TECHNIQUE: Computed tomography (CT) of the head was performed without intravenous contrast. The dose- length product was 605.33 mGy-cm. Automated exposure control and iterative reconstruction technique w ere employed. COMPARISON: CT dated 12/05/2021 FINDINGS: Generalized atrophy. There is compensatory dilation of the ventricles. There are scattered moderate periventricular and subcortical white matter changes, most likely related to small vessel is chemic disease (microangiopathy). There is intracranial atherosclerosis. No acute intracranial hemorr tomás, infarction, mass or mass effect. Basilar cisterns are patent. No depressed skull fractures. Par anasal sinuses and mastoids are pneumatized. IMPRESSION: 1. No acute intracranial abnormality. Reviewed, dictated and finalized at location A.
--- NOTE | ~2022-04-28 | XR_ITS ---
XR pelvis 1-2V 04/28/2022 22:04 Indication: Status post fall. Procedure: AP pelvis Comparison: 09/03/2021 Findings: Pelvic rings are intact. Sacral foramen are symmetric. 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 No acute fracture or traumatic malalignment. No soft tissue abnormality. Impression: 1: No acute fracture. Reviewed, dictated and finalized at location A. Impression: 1: No acute fracture.
[2022-04-28 21:10] VITALS: BP 189/80; PULSE 77; RESP 17; TEMP 36.2; O2SAT 99
[2022-04-28 22:30] LABS: Glucose Point of Care 84 mg/dl (65-105)
--- NOTE | 2022-04-28 22:48 | ED.FALL ---
HPI - Fall General Chief Complaint: Extremity Injury, Upper Stated Complaint: HIP PAIN AFTER FALL, POSSIBLE SYNCOPE Time Seen by Provider: 04/28/22 21:30 History of Present Illness HPI Narrative: Patient was going to the bathroom when she slipped off the toilet and got wedged in between a wall, per nursing staff was able to help her out but sent her to the ER to make sure she was okay. Patient is denying any complaints. Related Data Home Medications Medication Instructions Recorded Confirmed Namenda 10 mg PO BID 06/19/20 06/19/20 alendronate 70 mg tablet 70 mg PO WEEKLY 06/19/20 06/19/20 donepezil 10 mg tablet 10 mg PO HS 06/19/20 06/19/20 levothyroxine 25 mcg tablet 25 mcg PO DAILY 06/19/20 06/19/20 simvastatin 10 mg tablet 10 mg PO .EVENING 06/19/20 06/19/20 Allergies Allergy/AdvReac Type Severity Reaction Status Date / Time No Known Allergies Allergy Verified 04/10/22 20:45 Review of Systems Review of Systems: CONST: No fever. HEENT: No sore throat C/V: No chest pain RESP: No trouble breathing GI: No abdominal pain : No dysuria. M/S: No joint pain. SKIN: No rash. NEURO: [No headache or focal numbness or weakness] PSYCH: [No depression] [facility] Past Medical History Medical History Alzheimers disease Hypertension Hypothyroidism Mild hypercholesterolemia Osteoporosis Urinary tract infection in female Surgical History Surgical History History of hysterectomy Family History Family History Father Unknown family medical history Mother No significant past medical history Social History Social History Smoking status: Former smoker Second hand tobacco smoke exposure: No (former) Alcohol intake: never Substance use: never Additional living arrangements comments: Sharona lives with her spouse and daughter assist when needed, daughter says father is A&OX3 and healthy Gender identity (if verbalized by the patient): Female Sexual Orientation (if Verbalized by the Patient): Straight or Heterosexual Exam Narrative: EXAMINATION OF ORGAN SYSTEMS/BODY AREAS: Constitutional: Vital signs per nursing GENERAL:[No acute distress, non-toxic appearing.] HEAD: Normal with no signs of head trauma. EYES: EOMI, conjunctiva normal ENT: Hearing grossly intact LUNGS: Nonlabored breathing. HEART: [Regular rate and rhythm] ABD: [Soft], [nontender to palpation] EXT: Normal range of motion bruises on all extremities that appear old SKIN: Multiple ecchymoses NEURO: [Alert and oriented x 1. No gross focal sensory or strength deficits.] PSYCH: Normal affect Course Vital Signs Vital signs: Vital Signs Temperature 97.1 F L 04/28/22 21:10 Pulse Rate 77 04/28/22 21:10 Respiratory Rate 17 04/28/22 21:10 Blood Pressure 189/80 H 04/28/22 21:10 Pulse Oximetry 99 04/28/22 21:10 Oxygen Delivery Room Air 04/28/22 21:10 Temperature 97.1 F L 04/28/22 21:10 Pulse Rate 77 04/28/22 21:10 Respiratory Rate 17 04/28/22 21:10 Blood Pressure 189/80 H 04/28/22 21:10 Pulse Oximetry 99 04/28/22 21:10 Oxygen Delivery Room Air 04/28/22 21:10 MDM - Fall MDM Narrative Medical decision making narrative: 86-year-old female presenting after possible fall that was witnessed, she is well-appearing here and at her baseline, covered in old bruises, she had no tenderness to any extremity that I palpated and no obvious deformity. I have discussed with the patient's daughter that I will just obtain some basic imaging and as she is well-appearing and has no pain anywhere, if these are negative, I do feel comfortable having her go home given the low mechanism. These are unremarkable. Her blood sugar is checked and is normal. She is stable for discharge at this time and can ret
--- NOTE | 2022-04-28 23:31 | PC.NURSE ---
Transferred care to SUKH Lawson
[2022-04-29 01:23] VITALS: BP 184/93; PULSE 64; RESP 20; O2SAT 97
== END 2022-04-29 01:23 ==
PROVIDERS: Emergency Provider Emergency Medicine; PCP Nurse Practitioner Family
DX: Z04.3 Encounter for examination and observation following other accident (principal); G30.9 Alzheimer's disease, unspecified; F02.80 Dementia in other diseases classified elsewhere, unspecified severity, without behavioral disturbance, psychotic disturbance, mood disturbance, and anxiety; I10 Essential (primary) hypertension; E03.9 Hypothyroidism, unspecified; E78.00 Pure hypercholesterolemia, unspecified; M81.0 Age-related osteoporosis without current pathological fracture; Z87.440 Personal history of urinary (tract) infections; Z87.891 Personal history of nicotine dependence; W18.11XA Fall from or off toilet without subsequent striking against object, initial encounter
CPT/HCPCS: 70450; 71045; 72125; 72170; 82948; 99284